=== PATIENT | female | born 1995 | race Caucasian/White ===

== ENCOUNTER 2017-05-05 20:10 | Emergency (ER) | payer MEDICAID ==
[2017-05-05] MEDS ORDERED: 0.9 % SODIUM CHLORIDE 10 ML DISP.SYRIN. IV (20:45)
[2017-05-05] MEDS: HYDROmorphone 2 MG/ML VIAL IV/SQ (20:52)
[2017-05-05 20:53] LABS: ADD MAN DIFF? NO
[2017-05-05 20:56] LABS: BASO # 0.1 x10^3/uL (0.0-0.2); BASO % 0 % (0-3); EOS # 0.2 x10^3/uL (0.0-0.7); EOS % 2 % (0-3); HEMATOCRIT 38.5 % (36.0-47.0); LYMPH # 2.4 x10^3/uL (1.0-4.8); LYMPH % 19 % (24-48); MEAN CORPUSCULAR HEMOGLOBIN 30 pg (25-35); MEAN CORPUSCULAR HGB CONC 34 g/dL (31-37); MEAN CORPUSCULAR VOLUME 88 fL (79-100); MONO # 0.8 x10^3/uL (0.0-1.1); MONO % 6 % (0-9); NEUT # 8.7 x10^3uL (1.8-7.7); NEUT % 72 % (31-73); PLATELET COUNT 258 x10^3/uL (140-400); RED CELL DISTRIBUTION WIDTH 13.4 % (11.5-14.5); WHITE BLOOD COUNT 12.1 x10^3/uL (4.0-11.0)
[2017-05-05 20:58] LABS: BILIRUBIN,URINE NEGATIVE (NEG); CLARITY,URINE CLEAR; COLOR,URINE YELLOW; GLUCOSE,URINE NEGATIVE (NEG); NITRITE,URINE NEGATIVE (NEG); PH,URINE 6.5; PROTEIN,URINE NEGATIVE (NEG-TRACE)
[2017-05-05] MEDS: ONDANSETRON PF 4 MG/2 ML VIAL. IV ×2 (21:00→22:43)
[2017-05-05] MEDS: IV RINGERS,LACTATED 1000ML 1,000 ML IV (21:00)
[2017-05-05 21:06] LABS: ANION GAP 11 (6-14); BACTERIA,URINE MODERATE /HPF (0-FEW); BLOOD UREA NITROGEN 9 mg/dL (7-20); CALCIUM 8.9 mg/dL (8.5-10.1); CARBON DIOXIDE 26 mmol/L (21-32); CHLORIDE 102 mmol/L (98-107); CREATININE 0.6 mg/dL (0.6-1.0); GFR 123.9; GLUCOSE 81 mg/dL (70-99); POTASSIUM 3.6 mmol/L (3.5-5.1); RBC,URINE OCC /HPF (0-2); SODIUM 139 mmol/L (136-145); SQUAMOUS EPITHELIAL CELL,UR MANY /LPF
[2017-05-05 21:12] LABS: ALBUMIN 3.6 g/dL (3.4-5.0); ALK PHOS 95 U/L (46-116); ALT (SGPT) 34 U/L (14-59); AST (SGOT) 19 U/L (15-37); DIRECT BILIRUBIN 0.1 mg/dL (0.0-0.2); MAGNESIUM 1.8 mg/dL (1.8-2.4); TOTAL BILIRUBIN 0.2 mg/dL (0.2-1.0); TOTAL PROTEIN 7.5 g/dL (6.4-8.2)
[2017-05-05] MEDS: METOCLOPRAMIDE HCL 10 MG/2 ML VIAL. IV (23:26)
== END 2017-05-05 23:46 | disposition home or self-care (01) ==
LOC: ER 20:10
DX: O21.9 Vomiting of pregnancy, unspecified (principal); O26.891 Other specified pregnancy related conditions, first trimester; R10.30 Lower abdominal pain, unspecified; O99.511 Diseases of the respiratory system complicating pregnancy, first trimester; J45.909 Unspecified asthma, uncomplicated; G43.909 Migraine, unspecified, not intractable, without status migrainosus; Z3A.09 9 weeks gestation of pregnancy; Z88.2 Allergy status to sulfonamides; Z88.1 Allergy status to other antibiotic agents; Z91.041 Radiographic dye allergy status; Z91.013 Allergy to seafood
CPT/HCPCS: 36415; 76801; 80048; 80076; 81001; 83735; 85025; 86900; 86901; 87086; 96361; 96374; 96375; 99285-25; J2405; J2765; J7120